=== PATIENT | male | born 1980 | race Caucasian/White ===

== ENCOUNTER 2017-08-13 15:21 | Emergency (ER) | payer BC ==
--- NOTE | 2017-08-13 15:27 | EDM.PDOC ---
ED HPI GENERAL MEDICAL PROBLEM - General Stated Complaint: PT CUT HIS RT HAND Time Seen by Provider: 08/13/17 15:26 Source of Information: Reports: Patient - History of Present Illness INITIAL COMMENTS - FREE TEXT/NARRATIVE: HISTORY AND PHYSICAL: History of present illness: [Patient slipped on some ice in his friends driveway just prior to arrival, he struck his hand on some exposed expanded metal cutting his hyperthenar eminence approximately inch and a quarter linear laceration tendon function intact pre- and post suture entire limb neurovascularly intact No fever nausea vomiting chills sweats Review of systems: As per history of present illness and below otherwise all systems reviewed and negative. Past medical history: As per history of present illness and as reviewed below otherwise noncontributory. Surgical history: As per history of present illness and as reviewed below otherwise noncontributory. Social history: No reported history of drug or alcohol abuse. Family history: As per history of present illness and as reviewed below otherwise noncontributory. Physical exam: HEENT: Atraumatic, normocephalic, pupils reactive, negative for conjunctival pallor or scleral icterus, mucous membranes moist, throat clear, neck supple, nontender, trachea midline. Lungs: Clear to auscultation, breath sounds equal bilaterally, chest nontender. Heart: S1S2, regular, negative for clicks, rubs, or JVD. Abdomen: Soft, nondistended, nontender. Negative for masses or hepatosplenomegaly. Negative for costovertebral tenderness. Pelvis: Stable nontender. Genitourinary: Deferred. Rectal: Deferred. Extremities: Atraumatic, negative for cords or calf pain. Neurovascular unremarkable. Neuro: Awake, alert, oriented. Cranial nerves II through XII unremarkable. Cerebellum unremarkable. Motor and sensory unremarkable throughout. Exam nonfocal. Skin as per history of present illness otherwise unremarkable Diagnostics: [Clinical ] Therapeutics: []Keflex 500 by mouth twice a day #20 no refill Tetanus status is updated today Lidocaine 1% #5 4-0 interrupted Prolene sutures No complication no complaint Wound cleansed and explored prior to closure Standard wound care instructions Keep wound clean and dry for 48 hours Bacitracin Telfa gauze dressing Sutures out in 10 days Impression: [3 cm linear laceration] Definitive disposition and diagnosis as appropriate pending reevaluation and review of above. Right lateral side of hand Pain Score (Numeric/FACES): 8 - Related Data Allergies Allergy/AdvReac Type Severity Reaction Status Date / Time No Known Allergies Allergy Verified 08/13/17 15:34 Home Meds: Home Meds Methylphenidate [Ritalin] 10 mg PO TID 08/13/17 [History] ED ROS GENERAL - Review of Systems Review Of Systems: ROS reveals no pertinent complaints other than HPI. ED EXAM, GENERAL - Physical Exam Exam: See Below Course - Vital Signs Last Recorded V/S: Last Vital Signs Temp 98.4 F 08/13/17 15:35 Pulse 70 08/13/17 15:35 Resp 18 08/13/17 15:35 BP 163/49 H 08/13/17 15:35 Pulse Ox 100 08/13/17 15:35 - Orders/Labs/Meds Orders: Active Orders 24 hr Category Date Time Status Vaccines to be Administered [RC] PER UNIT ROUTINE Care 08/13/17 15:31 Active Meds: Medications Discontinued Medications Generic Name Dose Route Start Last Admin Trade Name Dianna PRN Reason Stop Dose Admin Bacitracin 1 dose 08/13/17 15:30 08/13/17 15:38 Bacitracin Oint 1 Gm TOP 08/13/17 15:31 1 dose ONETIME ONE Administration Diphtheria/Tetanus/Acell Pertussis 0.5 ml 08/13/17 15:31 08/13/17 15:37 Adacel IM 08/13/17 15:32 0.5 ml .ONCE ONE Administration Lidocaine HCl 20 ml 08/13/17 15:30 08/13/17 15:38 Xylocaine 1% INJECT 08/13/17 15:31 20 ml ONETIME ONE Administration Departure - Departure Time of Disposition: 15:49 Disposition: Home, Self-Care 01 Condition: Good Clinical Impression: Laceration - Discharge Information Referrals: PCP,None [Primary Care Provider] - Additional Instructions: Standard wound care instructions Keep wound clean and dry for 48 hours Bacitracin Telfa gauze dressing Sutures out in 10 days Keflex 500 mg by mouth daily #20 no refill Return if redness warmth or pus drainage despite antibiotics as this would be sign of infection The following information is given to patients seen in the emergency department who are being discharged to home. This information is to outline your options for follow-up care. We provide all patients seen in our emergency department with a follow-up referral. The need for follow-up, as well as the timing and circumstances, are variable depending upon the specifics of your emergency department visit. If you don't have a primary care physician on staff, we will provide you with a referral. We always advise you to contact your personal physician following an emergency department visit to inform them of the circumstance of the visit and for follow-up with them and/or the need for any referrals to a consulting specialist. The emergency department will also refer you to a specialist when appropriate. This referral assures that you have the opportunity for follow-up care with a specialist. All of these measure are taken in an effort to provide you with optimal care, which includes your follow-up. Under all circumstances we always encourage you to contact your private physician who remains a resource for coordinating your care. When calling for follow-up care, please make the office aware that this follow-up is from your recent emergency room visit. If for any reason you are refused follow-up, please contact the [facility] emergency department at and asked to speak to the emergency department charge nurse. - My Orders Last 24 Hours: My Active Orders 08/13/17 15:31 Vaccines to be Administered [RC] PER UNIT ROUTINE - Assessment/Plan Last 24 Hours: My Active Orders 08/13/17 15:31 Vaccines to be Administered [RC] PER UNIT ROUTINE
[2017-08-13] MEDS ORDERED: Lidocaine 1% 20 ML MDV INJECT ONE (15:30)
[2017-08-13] MEDS ORDERED: Bacitracin Oint 1 GM U/D Packet TOP ONE (15:30)
[2017-08-13] MEDS ORDERED: Diphtheria,Pertussis(Acell),Tetanus Vaccine 0.5 ML Syringe IM ONE (15:31)
== END 2017-08-13 16:01 | disposition home or self-care (01) ==
LOC: MW.ED 15:21
DX: S61.411A Laceration without foreign body of right hand, initial encounter (principal); Z23 Encounter for immunization; W26.9XXA Contact with unspecified sharp object(s), initial encounter
CPT/HCPCS: 90471; 90715; 99282-25

== ENCOUNTER 2018-08-17 14:22 | Emergency (ER) | payer BC ==
--- NOTE | 2018-08-17 15:01 | EDM.PDOC ---
ED HPI GENERAL MEDICAL PROBLEM - General Chief Complaint: Respiratory Problem Stated Complaint: COUGH Time Seen by Provider: 08/17/18 14:58 Source of Information: Reports: Patient History Limitations: Reports: No Limitations - History of Present Illness INITIAL COMMENTS - FREE TEXT/NARRATIVE: HISTORY AND PHYSICAL: History of present illness: Patient is a 38-year-old male who presents to the emergency complaints of shortness of breath and cough. He states he does have a history of pneumonia and is concerned he may now have this again. He has had subjective fever and chills although has not checked this with a thermometer. He has a half a pack per day smoker over the past 23 years. He denies any abdominal pain, nausea, vomiting, diarrhea, constipation or dysuria. He has been eating and drinking appropriately. Review of systems: As per history of present illness and below otherwise all systems reviewed and negative. Past medical history: As per history of present illness and as reviewed below otherwise noncontributory. Surgical history: As per history of present illness and as reviewed below otherwise noncontributory. Social history: See social history for further information Family history: As per history of present illness and as reviewed below otherwise noncontributory. Physical exam: General: Well-developed and well-nourished 38-year-old male. Alert and oriented. Nontoxic appearing and in no acute distress. HEENT: Atraumatic, normocephalic, pupils equal and reactive bilaterally, negative for conjunctival pallor or scleral icterus, mucous membranes moist, TMs normal bilaterally, throat clear, neck supple, nontender, trachea midline. No drooling or trismus noted. No meningeal signs. No hot potato voice noted. Lungs: Clear to auscultation, breath sounds equal bilaterally, chest nontender. Dry nonproductive cough noted. Heart: S1S2, regular rate and rhythm without overt murmur Abdomen: Soft, nondistended, nontender. Negative for masses or hepatosplenomegaly. Negative for costovertebral tenderness. Pelvis: Stable nontender. Genitourinary: Deferred. Rectal: Deferred. Skin: Intact, warm, dry. No lesions or rashes noted. Extremities: Atraumatic, negative for cords or calf pain. Neurovascular unremarkable. Neuro: Awake, alert, oriented. Cranial nerves II through XII unremarkable. Cerebellum unremarkable. Motor and sensory unremarkable throughout. Exam nonfocal. Notes: Oxygen saturation on room air is 93%. Patient states he did have albuterol nebulizer treatments at home but has ran out of these. Chest x-ray shows no evidence of infiltrate or pneumonia. Oxygen saturation has improved since having the nebulizer treatment. Since the patient is a smoker and longevity of symptoms and going to treat him with a Z-Omid, refill his albuterol nebulizer solutions and Phenergan with codeine for his cough. Supportive care measures were reviewed and discussed. Voices understanding and is agreeable to plan of care. Denies any further questions or concerns at this time. Diagnostics: CXR Therapeutics: Ilsa Prescription: Zpack Albuterol Neb Solution Phenergan with Codiene (#4oz) Impression: Bronchitis Plan: 1. Please stop smoking. 2. Take your antibiotic and steroid as directed. Use your albuterol nebulizer treatments as needed and as directed. 3. Tylenol and/or ibuprofen as needed for pain management. Phenergan with codeine for nighttime use to help alleviate pain associated with cough. This medication may cause drowsiness a do not take it will driving her needing to be functioning outside of the house. 4. Follow-up with your primary caregiver in the next 1-2 days. Return to the ED as needed and as discussed. Definitive disposition and diagnosis as appropriate pending reevaluation and review of above. Lower back and midback Pain Score (Numeric/FACES): 3 - Related Data Allergies Allergy/AdvReac Type Severity Reaction Status Date / Time No Known Allergies Allergy Verified 08/17/18 14:49 Home Meds: Home Meds Methylphenidate [Ritalin] 10 mg PO TID 08/13/17 [History] Albuterol Sulfate [Proair Hfa] 8.5 gm IH BID 08/17/18 [History] Budesonide/Formoterol [Symbicort 160-4.5 MCG] 1 puff INH BID 08/17/18 [History] buPROPion [Wellbutrin SR] 150 mg PO DAILY 08/17/18 [History] Past Medical History - Past Health History Medical/Surgical History: Denies Medical/Surgical History Respiratory History: Reports: Asthma, Pneumonia, Recurrent Psychiatric History: Reports: ADD - Infectious Disease History Infectious Disease History: Reports: Chicken Pox Social & Family History - Family History Family Medical History: Noncontributory - Tobacco Use Smoking Status *Q: Current Every Day Smoker Years of Tobacco use: 23 Packs/Tins Daily: 0.2 - Caffeine Use Caffeine Use: Reports: Coffee - Recreational Drug Use Recreational Drug Use: No ED ROS GENERAL - Review of Systems Review Of Systems: ROS reveals no pertinent complaints other than HPI. ED EXAM, GENERAL - Physical Exam Exam: See Below (See dictation) Course - Vital Signs Last Recorded V/S: Last Vital Signs Temp 99.4 F 08/17/18 14:58 Pulse 98 08/17/18 14:58 Resp 16 08/17/18 14:58 BP 131/74 08/17/18 14:58 Pulse Ox 93 L 08/17/18 14:58 - Orders/Labs/Meds Orders: Active Orders 24 hr Category Date Time Status RT Aerosol Therapy [RC] ASDIRECTED Care 08/17/18 15:02 Active Meds: Medications Discontinued Medications Generic Name Dose Route Start Last Admin Trade Name Freq PRN Reason Stop Dose Admin Albuterol/Ipratropium 3 ml 08/17/18 15:02 Duoneb 3.0-0.5 Mg/3 Ml NEB 08/17/18 15:03 ONETIME ONE Departure - Departure Time of Disposition: 15:37 Disposition: Home, Self-Care 01 Clinical Impression: Bronchitis - Discharge Information Instructions: Acute Bronchitis, Adult, [id number] Referrals: Anna Moralez PA [Primary Care Provider] - Forms: ED Department Discharge Additional Instructions: The following information is given to patients seen in the emergency department who are being discharged to home. This information is to outline your options for follow-up care. We provide all patients seen in our emergency department with a follow-up referral. The need for follow-up, as well as the timing and circumstances, are variable depending upon the specifics of your emergency department visit. If you don't have a primary care physician on staff, we will provide you with a referral. We always advise you to contact your personal physician following an emergency department visit to inform them of the circumstance of the visit and for follow-up with them and/or the need for any referrals to a consulting specialist. The emergency department will also refer you to a specialist when appropriate. This referral assures that you have the opportunity for follow-up care with a specialist. All of these measure are taken in an effort to provide you with optimal care, which includes your follow-up. Under all circumstances we always encourage you to contact your private physician who remains a resource for coordinating your care. When calling for follow-up care, please make the office aware that this follow-up is from your recent emergency room visit. If for any reason you are refused follow-up, please contact the [facility] Emergency Department at and asked to speak to the emergency department charge nurse. [facility] Primary Care [address] [place] [id number] [id number] 1. Please stop smoking. 2. Take your antibiotic and steroid as directed. Use your albuterol nebulizer treatments as needed and as directed. 3. Tylenol and/or ibuprofen as needed for pain management. Phenergan with codeine for nighttime use to help alleviate pain associated with cough. This medication may cause drowsiness a do not take it will driving her needing to be functioning outside of the house. 4. Follow-up with your primary caregiver in the next 1-2 days. Return to the ED as needed and as discussed. - My Orders Last 24 Hours: My Active Orders 08/17/18 15:02 RT Aerosol Therapy [RC] ASDIRECTED - Assessment/Plan Last 24 Hours: My Active Orders 08/17/18 15:02 RT Aerosol Therapy [RC] ASDIRECTED
[2018-08-17] MEDS ORDERED: Albuterol/Ipratropium 3.0-0.5 MG/3 ML Neb Soln NEB ONE (15:02)
--- NOTE | 2018-08-17 15:34 | CR ---
INDICATION: None available COMPARISON: 01/17/2018 FINDINGS: PA and lateral views of the chest were obtained. The lungs remain clear. No focal or diffuse infiltrates are present. The heart remains normal in size. The mediastinum is normal in appearance. The osseous structures are normal in appearance for the patient`s age. COMPARISON IMPRESSION: Normal chest two views. Dictated by Lauri Campbell MD @ Aug 17 2018 3:31PM Signed by Dr. Lauri Campbell @ Aug 17 2018 3:33PM
== END 2018-08-17 16:04 | disposition home or self-care (01) ==
LOC: MW.ED 14:22
DX: J40 Bronchitis, not specified as acute or chronic (principal); F17.210 Nicotine dependence, cigarettes, uncomplicated; Z87.01 Personal history of pneumonia (recurrent)
CPT/HCPCS: 71046; 71046-26; 94640; 99282; 99285-25; J7620-GY

== ENCOUNTER 2019-12-16 00:31 | Emergency (ER) | payer BC ==
--- NOTE | 2019-12-16 00:47 | EDM.PDOC ---
ED HPI GENERAL MEDICAL PROBLEM - General Chief Complaint: Lower Extremity Injury/Pain Stated Complaint: SWELLING OF RIGHT LEG Time Seen by Provider: 12/16/19 00:32 Source of Information: Reports: Patient History Limitations: Reports: No Limitations - History of Present Illness INITIAL COMMENTS - FREE TEXT/NARRATIVE: 39-year-old male past medical history of ADHD presenting with right lower extremity pain and swelling. 2-day history of pain and swelling to the right lower leg. Patient did a 13-hour road trip yesterday from [place] to [place]. He was able to get out and take breaks every few hours. At the end of the road trip, he noticed pain and swelling to the right lower extremity distal to the knee. No prior history of DVTs, active malignancy, recent surgery or imm obilization. Denies chest discomfort or shortness of breath or hemoptysis. No recent trauma to the right lower extremity. No other complaints. right lower leg Pain Score (Numeric/FACES): 6 - Related Data Allergies Allergy/AdvReac Type Severity Reaction Status Date / Time No Known Allergies Allergy Verified 12/16/19 00:39 Home Meds: Home Meds Methylphenidate [Ritalin] 10 mg PO TID 08/13/17 [History] Albuterol Sulfate [Proair Hfa] 8.5 gm IH BID 08/17/18 [History] Budesonide/Formoterol [Symbicort 160-4.5 MCG] 1 puff INH BID 08/17/18 [History] Past Medical History Respiratory History: Reports: Asthma, Pneumonia, Recurrent Psychiatric History: Reports: ADD - Infectious Disease History Infectious Disease History: Reports: Chicken Pox Social & Family History - Family History Family Medical History: Noncontributory - Caffeine Use Caffeine Use: Reports: Coffee Review of Systems - Review of Systems Review Of Systems: See Below Respiratory: Denies: Shortness of Breath Cardiovascular: Reports: Edema. Denies: Chest Pain Musculoskeletal: Reports: Leg Pain. Denies: Joint Swelling ED EXAM, GENERAL - Physical Exam Exam: See Below Free Text/Narrative:: Vital signs reviewed. Nursing notes reviewed. Constitutional: Awake, alert, non-distressed. Head: Normocephalic, atraumatic. Eyes: EOMI, conjunctiva normal, no discharge, no scleral icterus. Ears, Nose, Throat: External ears and nose normal, moist oral mucosa. Cardiovascular: 2+ radial pulse, capillary refill less than 2 seconds. Trace edema to the right lower extremity distal to the knee. No palpable cords to the right lower extremity. Varicose veins noted to both legs. Pulmonary: normal work of breathing, no accessory muscle use. Abdomen/GI: Soft, nontender, nondistended, no guarding or rigidity, no masses. Musculoskeletal: No deformities. Right knee is unremarkable. Integumentary: Appropriate color for ethnicity, warm, dry, no pallor or jaundice, no rash. Neurologic: Alert, answering questions appropriately, normal speech, no facial droop, moving all extremities well. Psychiatric: Appropriate mood and affect, normal thought process. Course - Vital Signs Text/Narrative:: Patient hemodynamically stable, afebrile, well-appearing, looks nontoxic. Differential diagnosis includes but is not limited to: DVT, superficial clot, Cotter's cyst, muscle cramps, electrolyte disturbance, soft tissue trauma, etc. Right lower extremity DVT ultrasound is negative. Negative d-dimer. CBC shows mild leukocytosis. Metabolic panel is reassuring. Stable discharge home with outpatient primary care follow-up. [id number] Tylenol Motrin as needed for pain, leg elevation at night for any swelling. Plan: Patient is stable to discharge home with outpatient primary care follow- up. Strict emergency department return precautions were provided, patient indicated understanding. All questions were answered prior to departure. Discharged in good condition. Last Recorded V/S: Last Vital Signs Temp 35.5 C L 12/16/19 00:39 Pulse 75 12/16/19 01:40 Resp 18 12/16/19 01:40 BP 117/70 12/16/19 01:40 Pulse Ox 98 12/16/19 01:40 - Orders/Labs/Meds Labs: Laboratory Tests 12/16/19 12/16/19 12/16/19 Range/Units 01:05 01:05 01:05 WBC 12.38 H (4.0-11.0) K/uL RBC 4.40 L (4.50-5.90) M/uL Hgb 12.9 L (13.0-17.0) g/dL Hct 38.5 (38.0-50.0) % MCV 87.5 (80.0-98.0) fL MCH 29.3 (27.0-32.0) pg MCHC 33.5 (31.0-37.0) g/dL RDW Std Deviation 38.8 (28.0-62.0) fl RDW Coeff of Darrin 12 (11.0-15.0) % Plt Count 298 (150-400) K/uL MPV 8.90 (7.40-12.00) fL Neut % (Auto) 65.2 (48.0-80.0) % Lymph % (Auto) 25.1 (16.0-40.0) % [place] % (Auto) 7.4 (0.0-15.0) % Eos % (Auto) 1.9 (0.0-7.0) % Baso % (Auto) 0.4 (0.0-1.5) % Neut # (Auto) 8.1 H (1.4-5.7) K/uL Lymph # (Auto) 3.1 H (0.6-2.4) K/uL [place] # (Auto) 0.9 H (0.0-0.8) K/uL Eos # (Auto) 0.2 (0.0-0.7) K/uL Baso # (Auto) 0.1 (0.0-0.1) K/uL D-Dimer, Quantitative 0.46 (0.0-0.50) mg/L FEU Sodium 140 (136-148) mmol/L Potassium 3.7 (3.5-5.1) mmol/L Chloride 103 (98-107) mmol/L Carbon Dioxide 27.6 (21.0-32.0) mmol/L BUN 20 H (7.0-18.0) mg/dL Creatinine 0.7 L (0.8-1.3) mg/dL Est Cr Clr Drug Dosing 135.71 mL/min Estimated GFR (MDRD) > 60.0 ml/min Glucose 120 H (74-106) mg/dL Calcium 8.7 (8.5-10.1) mg/dL Departure - Departure Time of Disposition: 01:45 Disposition: Home, Self-Care 01 Condition: Good Clinical Impression: Pain of right lower extremity - Discharge Information *PRESCRIPTION DRUG MONITORING PROGRAM REVIEWED*: Not Applicable *COPY OF PRESCRIPTION DRUG MONITORING REPORT IN PATIENT ILYA: Not Applicable Instructions: Pain Without a Known Cause Referrals: Anna Moralez PA [Primary Care Provider] - 1 Week (As needed for follow-up of your symptoms.) Forms: ED Department Discharge Additional Instructions: Thank you for choosing the [facility] emergency department in [place] for your medical needs today. It was a pleasure caring for you. You were seen in the emergency department for leg pain and swelling. Your DVT ultrasound study was negative. The exact cause of your pain and swelling is not known at this point but there is no evidence of a life-threatening condition. You can take [id number] Tylenol or Motrin for pain. I recommend you follow-up with your primary medical clinic in the next few days if your symptoms do not improve. Please return the emergency department immediately if your symptoms worsen or if you feel worse. The following information is given to patients seen in the emergency department who are being discharged. This information is to outline your options for follow-up care. We provide all patients seen in our emergency department with a follow-up referral. The need for follow-up, as well as the timing and circumstances, are variable depending upon the specifics of your emergency department visit. If you don't have a primary care physician on staff, we will provide you with a referral. We always advise you to contact your personal physician following an emergency department visit to inform them of the circumstance of the visit and for follow-up with them and/or the need for any referrals to a consulting spec ialist. The emergency department will also refer you to a specialist when appropriate. This referral assures that you have the opportunity for follow-up care with a specialist. All of these measure are taken in an effort to provide you with optimal care, which includes your follow-up. Under all circumstances we always encourage you to contact your private physician who remains a resource for coordinating your care. When calling for follow-up care, please make the office aware that this follow-up is from your recent emergency room visit. If for any reason you are refused follow-up, please contact the [facility] Emergency Department at and asked to speak to the emergency department charge nurse. If you do not have a primary care physician that is caring for you, you can contact these clinics below to set up an appointment to establish care: [facility] - Primary Care [address] [address] [facility] [address] [place] [address] Sepsis Event Note (ED) - Evaluation Sepsis Screening Result: No Definite Risk - Focused Exam Vital Signs: Vital Signs Temp Pulse Resp BP Pulse Ox 12/16/19 01:40 75 18 117/70 98 12/16/19 00:39 35.5 C L 83 18 148/98 H 98
[2019-12-16 01:33] LABS: BLOOD UREA NITROGEN,BUN 20 mg/dL (7.0-18.0); CARBON DIOXIDE,CO2 27.6 mmol/L (21.0-32.0); CHLORIDE,CL 103 mmol/L (98-107); GLUCOSE RANDOM 120 mg/dL (74-106); POTASSIUM,K 3.7 mmol/L (3.5-5.1); SODIUM,NA 140 mmol/L (136-148)
--- NOTE | 2019-12-16 01:42 | US ---
INDICATION: Calf pain, swelling TECHNIQUE: Ultrasound venous duplex right lower extremity. Armstrong-scale, color Doppler, and spectral Doppler imaging were performed with compression and augmentation. COMPARISON: None FINDINGS: Deep veins: The right common femoral, femoral, popliteal, and visualized calf veins are fully compressible, demonstrate normal color flow, and normal response to mechanical augmentation. The Duplex Doppler waveforms are normal in appearance. The visualized contralateral left common femoral vein is patent. Superficial veins: The visualized greater saphenous and superficial veins of the leg and calf are unremarkable. Soft tissue: No masses or cysts are identified. No adenopathy is seen. IMPRESSION: 1. No sonographic evidence of acute deep venous thrombosis seen. Dictated by: Carlos Wilson MD @ 12/16/2019 01:39:43 (Electronically Signed)
== END 2019-12-16 01:50 | disposition home or self-care (01) ==
LOC: MW.ED 00:31
DX: M79.661 Pain in right lower leg (principal); J45.909 Unspecified asthma, uncomplicated; F90.9 Attention-deficit hyperactivity disorder, unspecified type; Z79.899 Other long term (current) drug therapy
CPT/HCPCS: 36415; 80048; 85025; 85379; 93971-26-RT; 93971-RT; 99282; 99284-25

== ENCOUNTER 2022-01-26 19:12 | Emergency (ER) | payer BC | END 2022-01-26 23:14 | disposition home or self-care (01) | LOC: MW.ED 19:12 | DX: U07.1 COVID-19 (principal); J45.909 Unspecified asthma, uncomplicated; Z79.899 Other long term (current) drug therapy | CPT/HCPCS: 99283; U0002 ==

== ENCOUNTER 2022-05-25 11:47 | Emergency (ER) | payer BC ==
[2022-05-25] MEDS ORDERED: Amoxicillin/Clavulanate K 875-125 MG Tab PO ONE (12:02)
== END 2022-05-25 13:08 | disposition home or self-care (01) ==
LOC: MW.ED 11:47
DX: S81.851A Open bite, right lower leg, initial encounter (principal); W54.0XXA Bitten by dog, initial encounter
CPT/HCPCS: 99283; A9270

== ENCOUNTER 2022-07-14 18:50 | Emergency (ER) | payer BC ==
[2022-07-14] MEDS ORDERED: methylPREDNISolone Sodium Succinate 125 MG/2 ML SDV IVPUSH ONE (19:38)
[2022-07-14] MEDS ORDERED: Magnesium Sulfate/Water 2 GM in Premix Bag 1 BAG IV ONE (19:38)
[2022-07-14] MEDS ORDERED: Albuterol/Ipratropium 3.0-0.5 MG/3 ML Neb Soln NEB STA (19:38)
[2022-07-14] MEDS ORDERED: Ketorolac 30 MG/ML SDV IVPUSH ONE (19:41)
[2022-07-14 19:47] LABS: POTASSIUM,K 3.7 mmol/L (3.5-5.1)
[2022-07-14] MEDS ORDERED: Albuterol 0.5% 5 MG/ML Neb Soln 20 ML Bottle NEB STA (21:04)
[2022-07-14] MEDS ORDERED: Albuterol 0.083% 2.5 MG/3 ML Neb Soln NEB ONE (21:13)
[2022-07-14] MEDS ORDERED: Albuterol 0.083% 2.5 MG/3 ML Neb Soln ONE (21:13)
[2022-07-14] MEDS ORDERED: Sodium Chloride 0.9% 1,000 ML IV SCH (21:15)
== END 2022-07-15 00:12 | disposition home or self-care (01) ==
LOC: MW.ED 18:50
DX: J45.901 Unspecified asthma with (acute) exacerbation (principal); Z72.0 Tobacco use; Z79.899 Other long term (current) drug therapy
CPT/HCPCS: 36415; 71045; 80053; 83735; 84484; 85025; 93005; 94640; 96361; 96365; 96375; 99285; J1885; J2930; J3475; J7030; 93010; 99284; J7620-GY

== ENCOUNTER 2022-07-17 00:58 | Inpatient (IN) | payer BC ==
[2022-07-17] MEDS ORDERED: Albuterol/Ipratropium 3.0-0.5 MG/3 ML Neb Soln NEB STA (01:12)
[2022-07-17 01:55] LABS: CARBON DIOXIDE,CO2 24.1 mmol/L (21.0-32.0); POTASSIUM,K 4.1 mmol/L (3.5-5.1)
[2022-07-17 02:09] LABS: CORONAVIRUS COVID-19 NAA NEGATIVE (NEGATIVE); INFLUENZA A NAA NEGATIVE (NEGATIVE); INFLUENZA B NAA NEGATIVE (NEGATIVE)
[2022-07-17] MEDS ORDERED: cefTRIAXone 2 GM in Premix Bag 1 BAG IV ONE (02:25)
[2022-07-17] MEDS ORDERED: methylPREDNISolone Sodium Succinate 40 MG/1 ML SDV IVPUSH ONE (02:25)
[2022-07-17] MEDS ORDERED: Albuterol 0.083% 2.5 MG/3 ML Neb Soln NEB STA (02:26)
[2022-07-17] MEDS ORDERED: Magnesium Sulfate/Water 2 GM in Premix Bag 1 BAG IV ONE (02:38)
[2022-07-17] MEDS: Sodium Chloride 0.9% 1,000 ML IV SCH ×2 (02:49→10:55)
[2022-07-17] MEDS: Doxycycline 100 MG in Sodium Chloride 0.9% 100 ML IV SCH ×2 (02:54→14:35)
[2022-07-17] MEDS ORDERED: Acetaminophen 325 MG Tab PO PRN (04:13)
[2022-07-17 06:43] LABS: CARBON DIOXIDE,CO2 24.6 mmol/L (21.0-32.0); POTASSIUM,K 3.8 mmol/L (3.5-5.1)
[2022-07-17] MEDS ORDERED: Ondansetron 4 MG/2 ML SDV IVPUSH PRN (07:51)
[2022-07-17] MEDS: Pantoprazole 40 MG Tab.CR PO SCH (08:11)
[2022-07-17 08:24] LABS: HEMOGLOBIN A1C 5.5 %
[2022-07-17] MEDS ORDERED: predniSONE 10 MG Tab PO SCH (09:00)
[2022-07-17] MEDS: METHYLPHENIDATE 10 MG PO SCH ×2 (10:58→19:10)
[2022-07-17] MEDS: Albuterol/Ipratropium 3.0-0.5 MG/3 ML Neb Soln NEB PRN ×2 (11:16→17:12)
[2022-07-17] MEDS ORDERED: METHYLPHENIDATE 10 MG PO SCH (14:00)
[2022-07-17] MEDS ORDERED: Sodium Chloride 0.65% Nasal Spray 45 ML Bottle NAS PRN (21:27)
[2022-07-18] MEDS: METHYLPHENIDATE 10 MG PO SCH ×2 (04:04→10:46)
[2022-07-18] MEDS: Albuterol/Ipratropium 3.0-0.5 MG/3 ML Neb Soln NEB PRN ×2 (05:48→10:19)
[2022-07-18 06:19] LABS: CARBON DIOXIDE,CO2 26.4 mmol/L (21.0-32.0); POTASSIUM,K 3.3 mmol/L (3.5-5.1)
[2022-07-18] MEDS: Pantoprazole 40 MG Tab.CR PO SCH (06:34)
[2022-07-18] MEDS ORDERED: Potassium Chloride 20 MEQ Tab.ER PO ONE (07:48)
[2022-07-18] MEDS ORDERED: Doxycycline 100 MG Cap PO SCH (09:00)
[2022-07-18] MEDS ORDERED: methylPREDNISolone Sodium Succinate 40 MG/1 ML SDV IVPUSH SCH (09:00)
== END 2022-07-18 11:02 | disposition home or self-care (01) | DRG 133 ==
LOC: MW.ED 00:58 → MW.MS 02:32
PROVIDERS: ADMIT Internal Medicine; ATTEND Internal Medicine
DX: J96.21 Acute and chronic respiratory failure with hypoxia (principal); J45.901 Unspecified asthma with (acute) exacerbation; K21.9 Gastro-esophageal reflux disease without esophagitis; F90.9 Attention-deficit hyperactivity disorder, unspecified type; R73.9 Hyperglycemia, unspecified; Z20.822 Contact with and (suspected) exposure to COVID-19; Z79.899 Other long term (current) drug therapy; Z87.01 Personal history of pneumonia (recurrent); Z87.891 Personal history of nicotine dependence
CPT/HCPCS: 0240U; 36415; 71045; 71045-26; 80053; 82803; 83036; 83605; 83735; 84484; 85025; 85610; 87040; 93005; 93010; 94640; 96374; 96375; 99284; 99285-25; A9270-GY; J0696; J2920; J3475; J3490; J7030; J7050; J7620-GY

== ENCOUNTER 2022-10-14 21:24 | Emergency (ER) | payer BC ==
[2022-10-14] MEDS ORDERED: Acetaminophen 325 MG Tab PO ONE (21:36)
[2022-10-14] MEDS ORDERED: Ketorolac 30 MG/ML SDV IM ONE (22:59)
== END 2022-10-14 23:18 | disposition home or self-care (01) ==
LOC: MW.ED 21:24
DX: M25.561 Pain in right knee (principal); M25.461 Effusion, right knee; J45.909 Unspecified asthma, uncomplicated
CPT/HCPCS: 73562; 93971; 96372; 99284; A9270; J1885; 99283

== ENCOUNTER 2023-04-30 17:45 | Emergency (ER) | payer BC | END 2023-04-30 18:30 | disposition home or self-care (01) | LOC: MW.ED 17:45 | DX: K02.9 Dental caries, unspecified (principal); J45.909 Unspecified asthma, uncomplicated | CPT/HCPCS: 99282; 99283 ==

== ENCOUNTER 2024-09-25 15:19 | Emergency (ER) | payer BC ==
[2024-09-25] MEDS: Lidocaine 2% Viscous Solution 15 ML UD PO ONE (15:54)
[2024-09-25] MEDS: Benzocaine 20% Topical Spray UD MUCMEM ONE (15:54)
== END 2024-09-25 15:59 | disposition home or self-care (01) ==
LOC: MW.ED 15:19
DX: K08.89 Other specified disorders of teeth and supporting structures (principal); Z79.899 Other long term (current) drug therapy; Z87.891 Personal history of nicotine dependence
CPT/HCPCS: 99283; A9270

== ENCOUNTER 2025-04-29 10:29 | Day surgery (SDC) | payer BC ==
[2025-04-29] MEDS ORDERED: propofoL 500 MG/50 ML 50 ML ONE (11:14)
[2025-04-29] MEDS: Lactated Ringers 1,000 ML IV SCH (11:20)
== END 2025-04-29 14:05 | disposition home or self-care (01) ==
LOC: MW.SDS 10:29
PROVIDERS: ATTEND Surgery
DX: Z12.11 Encounter for screening for malignant neoplasm of colon (principal); E66.812 Obesity, class 2; Z80.0 Family history of malignant neoplasm of digestive organs; Z68.41 Body mass index [BMI] 40.0-44.9, adult; Z87.891 Personal history of nicotine dependence; Z79.899 Other long term (current) drug therapy
CPT/HCPCS: 00811; J2704; J7120